=== PATIENT | male | born 1985 | race Caucasian/White ===

== ENCOUNTER 2021-07-14 07:51 | Emergency (ER) | payer BC ==
[~2021-07-14] VITALS: Ht 185.4 cm; Wt 81.6 kg
--- NOTE | 2021-07-14 08:02 | NUR ---
GOT [employer]ER COVID VACCINE THIS MONTH.
--- NOTE | 2021-07-14 08:03 | NUR ---
BIBS SELF C/O LOWER BACK PAIN X 2 DAYS WHILE PLAYING BASKETBALL AND PUMPING INTO SOMEONE. PT WOKE UP THIS MORNING WITH WORSENING PAIN. PAIN IS LOCATED ACROSS THE LOWER BACK, NONRADIATING, RATED 6/10 IN SEVERITY, WORSE WITH MOVEMENT, RELIEVED W/ IBUPROFEN. DENIES NUMBNESS/TINGLING. A&OX4. BREATHING EVEN AND UNLABORED.
[2021-07-14] MEDS ORDERED: KETOROLAC TROMETHAMINE INJ 30 MG/ML VIAL ONE (08:11)
[2021-07-14] MEDS ORDERED: CYCLOBENZAPRINE 10 MG TABLET ONE (08:12)
--- NOTE | 2021-07-14 08:20 | NUR ---
HEAT PACKS PLACED ON PT
[2021-07-14] MEDS ORDERED: KETOROLAC TROMETHAMINE INJ 30 MG/ML VIAL IM ONE (08:30)
[2021-07-14] MEDS ORDERED: CYCLOBENZAPRINE 10 MG TABLET PO ONE (08:30)
[2021-07-14] MEDS ORDERED: CYCL5TAB PO (09:20)
--- NOTE | 2021-07-14 09:45 | NUR ---
Patient discharged to home in stable condition. Written and verbal after care instructions given. Patient verbalizes understanding of instruction.
[2021-07-14 09:46] VITALS: BP 120/76
== END 2021-07-14 09:46 | disposition home or self-care (01) ==
LOC: ER 07:55
DX: S39.012A Strain of muscle, fascia and tendon of lower back, initial encounter (principal); J45.909 Unspecified asthma, uncomplicated; Z79.899 Other long term (current) drug therapy; X58.XXXA Exposure to other specified factors, initial encounter; Y93.67 Activity, basketball; Y92.89 Other specified places as the place of occurrence of the external cause; Y99.8 Other external cause status
CPT/HCPCS: 96372; 99283; J1885

== ENCOUNTER 2025-02-02 07:20 | Emergency (ER) | payer BC ==
[~2025-02-02] VITALS: Ht 185.4 cm; Wt 86.2 kg
[~2025-02-02 07:20] MED LIST: CYCL5TAB PO
[2025-02-02] MEDS ORDERED: CYCL10TA9 PO (07:42)
[2025-02-02] MEDS ORDERED: NAPR-1164 PO (07:42)
[2025-02-02] MEDS ORDERED: KETOROLAC TROMETHAMINE INJ 30 MG/ML VIAL ONE (07:46)
[2025-02-02] MEDS: KETOROLAC TROMETHAMINE INJ 30 MG/ML VIAL IM ONE (07:58)
[2025-02-02 08:00] VITALS: BP 132/70; TEMP 98.9; O2SAT 98
== END 2025-02-02 08:01 | disposition home or self-care (01) ==
LOC: ER 07:20
DX: M54.50 Low back pain, unspecified (principal); J45.909 Unspecified asthma, uncomplicated; Z79.899 Other long term (current) drug therapy
CPT/HCPCS: 99283; 96372; J1885